=== PATIENT | female | born 1995 | race Two or more races ===

== ENCOUNTER → 2019-10-30 | Outpatient (CLI) | payer OTHER ==
[~2019-10-30] MED LIST: METRONIDAZOLE
== END | disposition home or self-care (01) ==
LOC: RAD 14:01
DX: S73.03 Other anterior subluxation and dislocation of hip (principal)

== ENCOUNTER 2020-05-26 06:59 | Emergency (ER) | payer OTHER ==
[~2020-05-26] VITALS: Ht 162.6 cm; Wt 54.4 kg
== END 2020-05-26 14:02 | disposition home or self-care (01) ==
LOC: ER 06:59
DX: R10.32 Left lower quadrant pain (principal)